=== PATIENT | male | born 2000 | race Caucasian/White ===

== ENCOUNTER 2020-08-18 18:28 | Emergency (ER) | payer OTHER ==
--- NOTE | 2020-08-18 19:47 | ER Document Report ---
ED Medical Screen (RME) - General Chief Complaint: Abdominal Pain Stated Complaint: PENILE PAIN - HPI Notes: 08/18/20 19:46 Rapid Medical Exam HPI: 20-year-old male presents to the ER complaining of suprapubic pain and dark urine that began yesterday. He denies kidney stone history. No fevers, chills, testicular pain or swelling. No penile discharge. No recent sexual activity. No concern for STD. Patient is relatively asymptomatic at this time. Physical Exam: GENERAL: Well-appearing, well-nourished and in no acute distress. HEAD: Atraumatic, normocephalic. ENT: Moist mucous membranes. RESP: Respirations even and unlabored CV- Regular rate. NEURO: No focal neurological deficits. Moves all extremities spontaneously and on command. My involvement in this patients care was limited to a rapid initial assessment. A comprehensive ED assessment and evaluation of the patient, analysis of test results, treatment, and completion of the medical decision making process will be performed by other ER providers. - Related Data Allergies/Adverse Reactions: No Known Allergies Allergy (Unverified 08/18/20 19:36) Home Medications: CARBAMAZAPINE Past Medical History - Social History Frequency of alcohol use: Occasional Drug Abuse: Marijuana Physical Exam - Vital signs Vitals: Temp Pulse Resp BP Pulse Ox 98.4 F 63 16 134/79 H 100 08/18/20 18:56 08/18/20 18:56 08/18/20 18:56 08/18/20 18:56 08/18/20 18:56 Course - Vital Signs Vital signs: Temp Pulse Resp BP Pulse Ox 98.4 F 63 16 134/79 H 100 08/18/20 18:56 08/18/20 18:56 08/18/20 18:56 08/18/20 18:56 08/18/20 18:56
[2020-08-18 20:47] LABS: APPEARANCE,URINE CLEAR; BILIRUBIN,URINE NEGATIVE (NEGATIVE); COLOR,URINE YELLOW; GLUCOSE, URINE NEGATIVE (NEGATIVE); KETONES,URINE 20 mg/dL (NEGATIVE); LEUKOCYTE ESTERASE,URINE NEGATIVE (NEGATIVE); NITRITE,URINE NEGATIVE (NEGATIVE); PROTEIN,URINE NEGATIVE (NEGATIVE); URINE SPECIFIC GRAVITY 1.027; UROBILINOGEN,URINE NEGATIVE mg/dL (<2.0)
--- NOTE | 2020-08-18 22:16 | ER Document Report ---
ED General - General Chief Complaint: Abdominal Pain Stated Complaint: PENILE PAIN Primary Care Provider: TEE JOSÉ [Primary Care Provider] - Follow up as needed Notes: 20-year-old male with no significant past medical history presents with i ntermittent mild to moderate pain in his right and left inguinal areas that began at rest yesterday. Patient says his pain was never severe but since it was new he went to urgent care to have it checked out and he was very surprised when they sent him to the ED because he felt that his symptoms were not emergent. Patient endorses on review of systems that he he thinks his urine may have appeared slightly darker than usual today. Patient has not been sexually active in the past several months and has had no STD history and no known sick contacts. Patient has been working out more recently and doing many abdominal muscle exercises. Patient denies any dysuria, urgency, frequency, hematuria, brown urine, flank pain, vomiting, constipation, obstipation, fever, trauma, myalgia, dizziness or weakness, fainting, prior episodes, prior abdominal surgeries, immunocompromise history, STD history rashes or lesions, penile symptoms/discharge, testicular pain or swelling - Related Data Allergies/Adverse Reactions: No Known Allergies Allergy (Unverified 08/18/20 19:36) Home Medications: CARBAMAZAPINE Past Medical History - General Information source: Patient - Social History Smoking Status: Never Smoker Frequency of alcohol use: Occasional Drug Abuse: Marijuana Family History: Reviewed & Not Pertinent Review of Systems - Review of Systems Notes: REVIEW OF SYSTEMS: CONSTITUTIONAL : Denies fever, chills, or sweats. EENT: Denies recent cold/sinus symptoms, denies throat pain CARDIOVASCULAR: Denies chest pain, VADIM RESPIRATORY: Denies cough, denies shortness of breath. GASTROINTESTINAL: Denies abdominal pain, nausea/vomiting. GENITOURINARY: Denies difficulty urinating, painful urination. MUSCULOSKELETAL: Denies neck pain, back pain. SKIN: Denies rash or skin lesions. HEMATOLOGIC : Denies easy bruising or bleeding. LYMPHATIC: Denies swollen, enlarged glands. NEUROLOGICAL: Denies headache, denies change in gait. PSYCHIATRIC: Denies anxiety or stress or depression. Physical Exam - Vital signs Vitals: Temp Pulse Resp BP Pulse Ox 98.4 F 63 16 134/79 H 100 08/18/20 18:56 08/18/20 18:56 08/18/20 18:56 08/18/20 18:56 08/18/20 18:56 - Notes Notes: PHYSICAL EXAMINATION: GENERAL: Very well-appearing, well-nourished, young adult male sitting up in stretcher without any visible signs of discomfort and in no acute distress. Good historian. HEAD: Atraumatic, normocephalic. EYES: Pupils equal round and appropriate constriction, sclera anicteric, conjunctiva are normal. ENT: nares patent, moist mucous membranes. NECK: Normal range of motion, supple without lymphadenopathy LUNGS: Breath sounds clear to auscultation bilaterally and equal. No wheezes rales or rhonchi. HEART: Regular rate and rhythm without murmurs ABDOMEN: Soft, nontender, no guarding, no rebound, no masses, no CVAT : Normal external male genitalia, testicles with normal appearance nontender, no penile discharge, no inguinal swelling or lymphadenopathy, no inguinal tenderness, normal skin EXTREMITIES: Normal range of motion, no pitting or edema. No cyanosis. NEUROLOGICAL: Awake, alert, conversing appropriately, moves all extremities spontaneously. PSYCH: Normal mood, normal affect. SKIN: Warm, Dry, normal turgor, no rashes or lesions noted. Course - Re-evaluation Re-evalutation: 08/18/20 22:18 Very mild inguinal symptoms for 2 days without systemic symptoms. No STD risk factors and no testicular or penile symptoms, no abdominal pain or tenderness, very well-appearing on exam with normal vitals and completely normal exam. Patient has been exercising frequently recently and symptoms may be due to tendinitis or strain of the inferior insertions of abdominal muscles. No signs of STDs, rhabdo, UTI, atypical appendicitis, hernia, or renal colic. Patient with normal UA without any blood or RBCs, GC sent but clinical suspicion too low to treat empirically, patient agrees that symptoms are mild and we will continue to watch them. Gave extensive return to ED precautions which demonstrated understanding of. Instructed him to follow-up with primary doctor and urologist. Pain controlled without any analgesia. Patient ready for discharge. Patient denied having any other questions or concerns at time of discharge. - Vital Signs Vital signs: Temp Pulse Resp BP Pulse Ox 98.4 F 63 16 134/79 H 100 08/18/20 18:56 08/18/20 18:56 08/18/20 18:56 08/18/20 18:56 08/18/20 18:56 - Laboratory Results Laboratory Results Interpreted: 08/18/20 19:48 Urine Ketones 20 H Critical Laboratory Results Reviewed: No Critical Results - Radiology Results Critical Radiology Results Reviewed: No Critical Results Discharge - Discharge Clinical Impression: Inguinal pain of both sides Disposition: HOME, SELF-CARE Additional Instructions: Follow-up with a primary doctor and urologist within 1 week. If you have any worsening pain, difficulty urinating, pain with urinating, blood in urine, body aches, dizziness, weakness, fever, vomiting, inability to pass stool or gas, spreading pain, rash, or any other worsening or alarming symptoms return to the emergency department immediately. Referrals: ALONDRA ENGLISH MD [COMMUNITY BASED STAFF] - Follow up in 1 week ELÍAS BANDA MD [NO LOCAL MD] - Follow up in 1 week SHELTON MAHMOOD MD [NO LOCAL MD] - Follow up in 1 week
[2020-08-18 22:28] LABS: CHLAM PCR NOT DETECTED (NOT DETECT)
[2020-08-18 22:38] VITALS: BP 148/64
== END 2020-08-18 22:38 | disposition home or self-care (01) ==
LOC: ER 18:28
DX: R10.2 Pelvic and perineal pain (principal); R82.998 Other abnormal findings in urine
CPT/HCPCS: 81001; 87491; 87591; 99283